=== PATIENT | female | born 1975 | race Caucasian/White ===

== ENCOUNTER 2020-12-28 16:32 | Emergency (ER) | payer OTHER, SELFPAY ==
--- NOTE | 2020-12-28 | ECG_ITS ---
Test Reason : CHEST TIGHTNESS Blood Pressure : / mmHG Vent. Rate : 098 BPM Atrial Rate : 098 BPM P-R Int : 136 ms QRS Dur : 072 ms QT Int : 360 ms P-R-T Axes : 062 045 049 degrees QTc Int : 459 ms Normal sinus rhythm Normal ECG No previous ECGs available Referred By: Generic ED Physician Electronically Signed By:LORETO CANCHOLA
--- NOTE | ~2020-12-28 | CT_ITS ---
EXAMINATION: CT CHEST WITHOUT CONTRAST CLINICAL INFORMATION: Shortness of breath. COVID positive. COMPARISON: None TECHNIQUE: Multidetector volumetric CT imaging of the chest was done. Axial MIP volume rendering provided. Sagittal and coronal reformatted images were obtained. This CT examination was performed using dose optimization techniques as appropriate, variously including the following: *Automated exposure control *Adjustment of mA and/or kV according to patient size (this includes techniques or standardized protocols for targeted exams where dose is matched to indication/reason for exam; i.e. extremities or head) *Use of iterative reconstruction technique DLP: 284 mGy-cm FINDINGS: CLOTH FINISHING RANGE BACK TENDER: Unremarkable. LUNGS: Minimal reticulonodular densities within the right lower lobe (axial image 290/501), as well as within the left lingula (axial image 372/501) and within the left lower lobe (axial image 349/501 and 432/501). More prominent patchy consolidation laterally within the left upper lobe (see axial image 260/501). Right upper lobe subpleural nodule along the right major fissure measuring 0.2 cm (axial image 176/501). Posterior right lower lobe calcified granuloma (axial image 228/501). MEDIASTINUM: No cardiomegaly. No pericardial effusion. No thoracic aortic dilatation. No superior mediastinal or hilar lymphadenopathy. Unremarkable thyroid. PLEURA: There is no pleural effusion. No pleural mass or thickening. AXILLA: No lymphadenopathy. UPPER ABDOMEN: Unremarkable. OSSEOUS STRUCTURES: Unremarkable. CT/CT chest wo con IMPRESSION: 1. There are a few patchy areas of ground-glass and reticulonodular densities within the bilateral lungs, most prominent within the periphery of the left upper lobe. Findings are nonspecific and may represent an early infectious or inflammatory process. 2. Right upper lobe subpleural nodule measuring 0.2 cm. According to the UPDATED 2017 Fleischner Society recommendations, the advised follow-up imaging for solid nodules < 6 mm is: LOW RISK PATIENT: No routine follow-up. HIGH RISK PATIENT: Optional CT at 12 months. 3. No lymphadenopathy.
[2020-12-28 16:44] VITALS: BP 145/65; PULSE 99; RESP 16; TEMP 37.1; O2SAT 95; BMI 25.8
[2020-12-28 18:00] VITALS: BP 140/77; PULSE 97; RESP 18; O2SAT 100
--- NOTE | 2020-12-28 18:09 | PC.NURSE ---
patient had 2 doses of pfizer vaccine
--- NOTE | 2020-12-28 18:19 | PC.NURSE ---
patient an expect from urgent care who stated to this Rn that the patient is known covid positive [id number], presented to urgent care today with increased SOB and difficulty breathing, CXRAY at urgent care showed ? lt lung infiltrates as well as a mass that the provider thought needed further imaging and workup via the ED. Patient 100% on room air upon arrival, states chest pain and back pain and that she feels the urgent care provider was just being over cautious and that she does not need to be here. patient placed on the secured entrance monitor, vital signs obtained and WNL, provider made aware.
--- NOTE | 2020-12-28 18:39 | ED_ITS ---
HPI - SOB/Dyspnea General Chief Complaint: Dyspnea Stated Complaint: SOB, covid+ 10days Time Seen by Provider: 12/28/20 18:22 Source: patient Mode of arrival: ambulatory Limitations: no limitations History of Present Illness HPI Narrative: Patient is a 45-year-old female with no significant past medical history who was sent here from urgent care after having a questionable left lower lobe mass versus infiltrate on her chest x-ray. Patient states she tested positive for COVID 10 days ago and has managed well at home with no interventions are need for hospitalization. She states she has been a little bit short of breath so she went to urgent care today where they did an x-ray. She states she did have a calcium deposit in her central chest that she had removed many years ago but the question Huber area was in the left lower lobe. She denies fevers are cough but says she had does have some midsternal pain that wraps around to her back. Patient has been eating and drinking normally. Related Data Allergies Allergy/AdvReac Type Severity Reaction Status Date / Time No Known Allergies Allergy Unverified 12/28/20 18:23 Review of Systems Review of Systems: Yes all other systems are reviewed and are negative [facility] Social History Social History Advance Directives: No Advance Directives Information Provided: No Physical Exam Vital Signs: Vital Signs: Last Vital Signs Temp 98.5 F 12/28/20 19:58 Pulse 96 12/28/20 19:58 Resp 21 H 12/28/20 19:58 BP 142/81 H 12/28/20 19:58 Pulse Ox 100 12/28/20 19:58 Body Mass Index 25.8 Const: General: cooperative, healthy appearing, comfortable, no acute distress and well developed Orientation/consciousness: patient oriented x3 Limitations: no limitations HENMT: Head: Yes normal to inspection Eyes: General: appearance normal, both eyes and all related structures Neck: Neck: Yes normal visual inspection and Yes full ROM Resp: Effort & Inspection: normal respiratory effort and able to speak in complete sentences Auscultation: clear to auscultation bilaterally Cardio: Rate: regular rate Rhythm: regular rhythm Heart sounds: normal S1 and S2 GI: Inspection: Yes normal to inspection Palpation (GI): Soft to palpation and nontender Skin: General skin exam: no rashes or lesions noted Neuro: General: patient oriented x3 Extrem: General: Yes normal to inspection Course Course Course Narrative: Patient is a 45-year-old female with no significant past medical history who was sent here from urgent care after having a questionable left lower lobe mass versus infiltrate on her chest x-ray. He is to does admit to shortness of breath and chest pain which is midsternal and wraps around to her back. Her vital signs are stable, slightly hypertensive at 140/77 but she is satting at 100% on room air. Physical exam was unremarkable. Will order CT scan. Reevaluation(s) Reevaluation #1: CT scan showed COVID lungs with ground-glass opacities however patient is satting at 100% on room air. Will advise patient okay to discharge home, and give red flag warning signs and when to return to the emergency department. MDM - SOB/Dyspnea Lab Data Attestation: I reviewed the patient's lab results. Labs: Lab Results 12/28/20 Range/Units 18:33 COVID-19 (SERGIO) Negative (Negative) COVID-19 Clin Com See Note Imaging Data CT scan - chest: Attestation: I personally reviewed and interpreted this imaging study as follows: Radiologist's impression: [address] [address] [address] Scan Report Signed Patient: Edna Ricardo MR#: [id number] : 1975 Acct:[id number] Age/Sex: 45 / F ADM Date: 12/28/20 Loc: .ED Attending Dr: Ordering Physician: Irish Matson PA-C Date of Service: 12/28/20 Procedure(s): CT chest wo con Accession Number(s): [id number] cc: Irish Matson PA-C~ EXAMINATION: CT CHEST WITHOUT CONTRAST CLINICAL INFORMATION: Shortness of breath. COVID positive.? COMPARISON: None? TECHNIQUE: Multidetector volumetric CT imaging of the chest was done. Axial MIP volume rendering provided. Sagittal and coronal reformatted images were obtained.? This CT examination was performed using dose optimization techniques as appropriate, variously including the following: *Automated exposure control *Adjustment of mA and/or kV according to patient size (this includes techniques or standardized protocols for targeted exams where dose is matched to indication/reason for exam; i.e. extremities or head) *Use of iterative reconstruction technique DLP: 284 mGy-cm FINDINGS: HOME SECURITY PROFESSIONAL: Unremarkable. LUNGS: Minimal reticulonodular densities within the right lower lobe (axial image 290/501), as well as within the left lingula (axial image 372/501) and within the left lower lobe (axial image 349/501 and 432/501). More prominent patchy consolidation laterally within the left upper lobe (see axial image 260/501). Right upper lobe subpleural nodule along the right major fissure measuring 0.2 cm (axial image 176/501). Posterior right lower lobe calcified granuloma (axial image 228/501).? MEDIASTINUM: No cardiomegaly. No pericardial effusion. No thoracic aortic dilatation. No superior mediastinal or hilar lymphadenopathy. Unremarkable thyroid.? PLEURA: There is no pleural effusion. No pleural mass or thickening.? AXILLA: No lymphadenopathy.? UPPER ABDOMEN: Unremarkable.? OSSEOUS STRUCTURES: Unremarkable.? CT/CT chest wo con IMPRESSION: 1. There are a few patchy areas of ground-glass and reticulonodular densities within the bilateral lungs, most prominent within the periphery of the left upper lobe. Findings are nonspecific and may represent an early infectious or inflammatory process. ? 2. Right upper lobe subpleural nodule measuring 0.2 cm. According to the UPDATED 2017 Fleischner Society recommendations, the advised follow-up imaging for solid nodules < 6 mm is: ?? LOW RISK PATIENT: No routine follow-up. ?? HIGH RISK PATIENT: Optional CT at 12 months. ? 3. No lymphadenopathy.? Dictated By: ELISSA MCCLELLAN MD Signed By: <Electronically signed by ELISSA MCCLELLAN MD in OV> 12/28/201942 DD/ 39 TD/TT:? 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 Your CT scan showed some changes in your lungs likely due to COVID. Since your oxygenation is 100% on room air, your body is handling it fine. Please continue to monitor your oxygenation and how you are feeling. If your shortness of breath increases or you have chest pain, please return to the emergency department. You can purchase a 02 sensor to monitor your O2 saturation. Your CT scan also showed a small nodule, measuring 0.2 centimetres (very tiny!), since you are low risk, you should need to follow-up on it however mention it to your primary care doctor because you could get a CT scan in 1 year to monitor it. Referrals: Blake Guillen MD [Primary Care Provider] - 2 days (if not better) Interventions: ED Discharge Assessment Last Done: 12/28/20 20:43 Discharge Date/Time: 12/28/20 20:30
[2020-12-28 18:55] LABS: COVID-19 Test Negative (Negative); IDNOW Serial# 9DD0AD1C
[2020-12-28 19:58] VITALS: BP 142/81; PULSE 96; RESP 21; TEMP 36.9; O2SAT 100
--- NOTE | 2020-12-28 20:01 | PC.NURSE ---
Pt aaox4, resting on stretcher in NAD, breathing with ease on RA, skin warm dry and normal in appearance for age and race. Pt reports very dull mid sternal chest tightness/pressure. Pt VSS on RA. Pt requesting update on plan of care/dispo. This RN to notify NICHOLAS Sahu. Pt offers no additional complaints. Pt stretcher in low locked position, rails raised x 2, call duggan within reach. Pt NSR on bedside radiographer cardiac catheterization.
== END 2020-12-28 20:30 | disposition home or self-care (01) ==
PROVIDERS: Emergency Provider Emergency Medicine; PCP Internal Medicine
DX: J06.9 Acute upper respiratory infection, unspecified (principal); Z86.16 Personal history of COVID-19
CPT/HCPCS: 36415; 71250; 87635; 93005; 99284

== ENCOUNTER 2021-11-22 16:21 | Outpatient (REF) | payer OTHER, SELFPAY ==
--- NOTE | ~2021-11-22 | CT_ITS ---
EXAMINATION: CT CHEST WITHOUT CONTRAST CLINICAL INFORMATION: Pulmonary nodules. COMPARISON: CT chest 12/28/2020 TECHNIQUE: Multidetector volumetric CT imaging of the chest was done. Axial MIP volume rendering provided. Sagittal and coronal reformatted images were obtained. This CT examination was performed using dose optimization techniques as appropriate, variously including the following: *Automated exposure control *Adjustment of mA and/or kV according to patient size (this includes techniques or standardized protocols for targeted exams where dose is matched to indication/reason for exam; i.e. extremities or head) *Use of iterative reconstruction technique DLP: 150 mGy-cm FINDINGS: KNOCKER OUT: Well-inflated lungs. LUNGS: The lungs are well-inflated and clear of acute pneumonic process. There is a 2 mm nodule medially in right upper lobe axial image 171/5, 1 mm subpleural nodule left lower lobe axial image 352/5. Previously seen reticular nodular densities in the right lower lobe, left lower lobe and lingular segments has resolved. MEDIASTINUM: The thyroid lobes are symmetric and normal. The central trachea and the bronchi are widely patent. The heart size and the great vessels are of normal caliber. There is no pericardial effusion. PLEURA: There is no pleural effusion. No pleural mass or thickening. AXILLA: No lymphadenopathy. UPPER ABDOMEN: Unremarkable. OSSEOUS STRUCTURES: Mild ventral spondylosis throughout the dorsal spine. There is focal calcification of theT5-T6 disc. No aggressive lytic or sclerotic process seen. CT/CT chest wo con IMPRESSION: Previously visualized reticular nodular densities have resolved. There are 2 mm nodules visualized which are stable. No new nodules or acute consolidation is seen. There is no abnormal mediastinal, hilar or axillary lymphadenopathy. Fleischner guidelines were followed.
== END 2021-11-22 16:22 | disposition home or self-care (01) ==
LOC: HO.CT 16:21
PROVIDERS: PCP Internal Medicine; Visit Provider Internal Medicine
DX: R91.1 Solitary pulmonary nodule (principal)
CPT/HCPCS: 71250